=== PATIENT | male | born 1995 | race Caucasian/White ===

== ENCOUNTER 2016-10-30 18:47 | Emergency (ER) | payer BC ==
[~2016-10-30] VITALS: Ht 175.3 cm; Wt 70.0 kg
[2016-10-30 18:54] VITALS: TEMP 36.7; Ht 175.3 cm; Wt 70.0 kg
[2016-10-30] MEDS ORDERED: LORAZEPAM 2 MG/ML 1 ML VIAL IV STA (19:12)
[2016-10-30] MEDS ORDERED: SODIUM CHLORIDE 0.9% 1000ML 1,000 ML IV STA ×2 (19:12→19:59)
[2016-10-30] MEDS ORDERED: ONDANSETRON INJ 2 MG/ML 2 ML VIAL IV STA (19:12)
[2016-10-30] MEDS ORDERED: CNC/54 PO (19:20)
[2016-10-30 19:25] LABS: BASO % 0.3 %; BASO ABS # 0.02 K/uL (0-0.2); COMPLETE YES; EOS % 0.1 %; HEMATOCRIT 49.7 % (42-52); IG% 0.1 %; LYMPH % 23.4 %; LYMPH ABS # 1.81 K/uL (1.2-3.4); MEAN CELL VOLUME 85.4 fL (80-100); MEAN CORPUSCULAR HEMOGLOBIN 30.4 pg (25-34); MEAN CORPUSCULAR HGB CONC 35.6 g/dl (32-36); MEAN PLATELET VOLUME 10.2 fL (7.4-10.4); MONO % 10.3 %; NEUT % 65.8 %; PLATELET COUNT 333 K/uL (130-400); RED BLOOD COUNT 5.82 M/uL (4.7-6.1); WHITE BLOOD COUNT 7.74 K/uL (4.8-10.8)
--- NOTE | 2016-10-30 19:27 | EMERGENCY ROOM VISIT NOTE ---
History Report prepared by Trung: Charu Boyd Under the Supervision of: Dr. Chuck Lopez D.O. First contact with patient: 19:07 Chief Complaint: TACHYCARDIA Stated Complaint: FAST HEART BEAT History of Present Illness The patient is a 20 year old male who presents to the Emergency Room with complaints of persistent fast heart rate starting this morning. He took some Adderall which he is normally not on. He took one 60 mg pill at 0200 and another at 0900 this morning. His heart rate has been elevated all day. He reports nausea and vomiting. He reports that he has not slept because he has been studying for [employer]. He feels anxious. He has not eaten today. He denies any abdominal pain, chest pain or SOB. He admits to marijuana use this morning. He denies taking any other drugs. He admits to alcohol use occasionally, but not in the past week. He denies any tobacco use. He denies any medical problems or surgeries. Source of History: patient Onset: this morning Position: other (heart) Quality: other (fast heart rate) Timing: other (persistent) Associated Symptoms: + nausea, + vomiting, No SOB, No abdominal pain, No chest pain Note: Pt reports feeling anxious. Review of Systems See HPI for pertinent positives & negatives. A total of 10 systems reviewed and were otherwise negative. Past Medical & Surgical Medical Problems: (1) No Known Active Medical Problems Family History No pertinent family history stated. Social History Smoking Status: Current Every Day Smoker Alcohol Use: occasionally Drug Use: marijuana Occupation Status: [employer] student Current/Historical Medications Scheduled Methylphenidate Hcl (Concerta), 54 MG PO DIRECTED Allergies Coded Allergies: No Known Allergies (Unverified , 10/30/16) Physical Exam Vital Signs Date Time Temp Pulse Resp B/P Pulse Ox O2 Delivery O2 Flow Rate FiO2 10/30/16 20:00 89 18 123/70 99 Room Air 10/30/16 19:15 78 10/30/16 18:54 36.7 140 20 137/80 97 Room Air Physical Exam GENERAL: Patient is awake, alert, and very anxious appearing. Patient is diaphoretic and pale. EYES: The conjunctivae are clear. The pupils are round and reactive. EARS, NOSE, MOUTH AND THROAT: The nose is without any evidence of any deformity. Mucous membranes are moist tongue is midline NECK: The neck is nontender and supple. RESPIRATORY: Normal respiratory effort is noted there is no evidence of wheezing rhonchi or rales CARDIOVASCULAR: Tachycardic rate and regular rhythm noted, there are no definite murmurs noted to auscultation. GASTROINTESTINAL: The abdomen is soft. Bowel sounds are present in all quadrants. Abdomen is nontender MUSCULOSKELETAL/EXTREMITIES: There is no evidence of gross deformity full range of motion is noted in the hips and shoulders SKIN: Cool and diaphoretic, no pedal edema noted. NEUROLOGIC: Patient is awake alert and oriented x3 strength is symmetric patellar reflexes are 2+ bilaterally Medical Decision & Procedures ER Provider Diagnostic Interpretation: X-ray results as stated below per interpretation by me and the radiologist. CHEST ONE VIEW PORTABLE CLINICAL HISTORY: Abdominal pain. Tachycardia. COMPARISON STUDY: No previous studies for comparison. FINDINGS: Lung lungs are normal. Lungs are clear. There is no pneumothorax or pleural effusion. Cardiac size is normal. Mediastinal contours are normal. There is no evidence of pulmonary edema. IMPRESSION: No acute cardiopulmonary findings. Electronically signed by: Vlad Segovia M.D. 10/30/2016 7:46 PM Dictated Date/Time: 10/30/2016 7:43 PM Laboratory Results 10/30/16 19:10 Red Blood Count 5.82, Mean Corpuscular Volume 85.4, Mean Corpuscular Hemoglobin 30.4, Mean Corpuscular Hemoglobin Concent 35.6, Mean Platelet Volume 10.2, Neutrophils (%) (Auto) 65.8, Lymphocytes (%) (Auto) 23.4, Monocytes (%) (Auto) 10.3, Eosinophils (%) (Auto) 0.1, Basophils (%) (Auto) 0.3, Neutrophils # (Auto ) 5.09, Lymphocytes # (Auto) 1.81, Monocytes # (Auto) 0.80, Eosinophils # (Auto ) 0.01, Basophils # (Auto) 0.02 10/30/16 19:10 Test 10/30/16 19:10 White Blood Count 7.74 K/uL (4.8-10.8) Red Blood Count 5.82 M/uL (4.7-6.1) Hemoglobin 17.7 g/dL (14.0-18.0) Hematocrit 49.7 % (42-52) Mean Corpuscular Volume 85.4 fL (80-100) Mean Corpuscular Hemoglobin 30.4 pg (25-34) Mean Corpuscular Hemoglobin Concent 35.6 g/dl (32-36) Platelet Count 333 K/uL (130-400) Mean Platelet Volume 10.2 fL (7.4-10.4) Neutrophils (%) (Auto) 65.8 % Lymphocytes (%) (Auto) 23.4 % Monocytes (%) (Auto) 10.3 % Eosinophils (%) (Auto) 0.1 % Basophils (%) (Auto) 0.3 % Neutrophils # (Auto) 5.09 K/uL (1.4-6.5) Lymphocytes # (Auto) 1.81 K/uL (1.2-3.4) Monocytes # (Auto) 0.80 K/uL (0.11-0.59) Eosinophils # (Auto) 0.01 K/uL (0-0.5) Basophils # (Auto) 0.02 K/uL (0-0.2) RDW Standard Deviation 38.4 fL (36.4-46.3) RDW Coefficient of Variation 12.4 % (11.5-14.5) Immature Granulocyte % (Auto) 0.1 % Immature Granulocyte # (Auto) 0.01 K/uL (0.00-0.02) Anion Gap 11.0 mmol/L (3-11) Est Creatinine Clear Calc Drug Dose 117.6 ml/min Estimated GFR () 125.9 Estimated GFR (Non- 108.6 BUN/Creatinine Ratio 11.4 (10-20) Calcium Level 9.9 mg/dl (8.5-10.1) Total Bilirubin 1.2 mg/dl (0.2-1) Direct Bilirubin 0.3 mg/dl (0-0.2) Aspartate Amino Transf (AST/SGOT) 14 U/L (15-37) Alanine Aminotransferase (ALT/SGPT) 24 U/L (12-78) Alkaline Phosphatase 88 U/L (45-117) Total Creatine Kinase 199 U/L (39-308) Creatine Kinase MB 1.4 ng/ml (0.5-3.6) Creatine Kinase MB Ratio 0.7 (0-3.0) Troponin I < 0.015 ng/ml (0-0.045) Total Protein 7.9 gm/dl (6.4-8.2) Albumin 4.8 gm/dl (3.4-5.0) Lipase 70 U/L (73-393) Salicylates Level < 1.7 mg/dl (2.8-20) Acetaminophen Level < 2 ug/ml (10-30) Laboratory results per my review. Medications Administered Medications (Trade) Dose Ordered Sig/Belinda Route Start Time Stop Time Status Last Admin Dose Admin Ondansetron HCl 4 mg 4 mg NOW STAT IV 10/30/16 19:12 10/30/16 19:14 DC 10/30/16 19:26 4 MG Sodium Chloride (Nss 1000ml) 1,000 ml @ 999 mls/hr Q1H1M STAT IV 10/30/16 19:12 10/30/16 20:12 DC 10/30/16 19:26 999 MLS/HR Lorazepam (Ativan Inj) 0.5 mg NOW STAT IV 10/30/16 19:12 10/30/16 19:14 DC 10/30/16 19:26 0.5 MG ECG Indication: palpitations Rate (beats per minute): 119 Rhythm: sinus tachycardia Findings: no ectopy, other (no acute ST segment abnormality) Comparison ECG Date: no prior available Change: Repeat EKG: NSR 80 no ectopy, no acute ST segment abnormalities. ED Course 1908: The patient was evaluated in room B11B. A complete history and physical examination were performed. 1911: Lorazepam 0.5 mg IV, NSS 1000 ml @ 999 mls/hr IV, Zofran Inj 4 mg IV. 1958: NSS 1000 ml @ 999 mls/hr IV. 2002: I discussed the patient's case with the Po[facility] Control [facility]. They recommend observation until symptoms improve. Medical Decision Prior records/ancillary studies reviewed. Triage Nursing notes reviewed. The patient's history was concerning for palpitations. Differential diagnosis: Etiologies such as premature contractions, electrolyte abnormality, cardiac dysrhythmia, thyroid dysfunction, pulmonary embolism, infection, gastrointestinal, as well as others were entertained. The patient is a 20-year-old male who presented to the emergency department for evaluation of palpitations and dizziness. The patient states that he used Adderall that he obtained from a friend to try to study for finals. He states that he thought that the pills were 30 milligrams apiece and he took one at 2 o' clock this morning as well as 9 o'clock this morning. The patient states that he started having palpitations and feelings that he took too much of the medication. The patient denies any suicidal ideation. The patient had significant tachycardia upon arrival to the emergency department but when he was being stuck for IV placement he had a vasovagal episode and appeared to have a sinus bradycardia. He stayed in normal sinus rhythm after this. His initial EKG did not appear like SVT but his blood pressure and his pulse rate in triage make me wonder if he actually was in SVT on arrival to the emergency department. He was treated with IV fluids and IV Ativan. I discussed his case with poison control. At this time I've encouraged him to rest and avoid any strenuous activity. I've encouraged him to avoid any further prescription or recreational drug use. He's also been encouraged to follow-up with his primary care physician or her [facility] tomorrow or return to the emergency department immediately if symptoms change worsen or the need arises. Impression Primary Impression: Adverse drug reaction Additional Impressions: Tachycardia Dizziness Scribe Attestation The scribe's documentation has been prepared under my direction and personally reviewed by me in its entirety. I confirm that the note above accurately reflects all work, treatment, procedures, and medical decision making performed by me. Departure Information Patient Instructions My [facility] Problem Qualifiers Primary Impression: Adverse drug reaction Encounter type: initial encounter Qualified Codes: T88.7XXA - Unspecified adverse effect of drug or medicament, initial encounter
--- NOTE | 2016-10-30 19:47 | DIAGNOSTIC IMAGING REPORT ---
CHEST ONE VIEW PORTABLE CLINICAL HISTORY: Abdominal pain. Tachycardia. COMPARISON STUDY: No previous studies for comparison. FINDINGS: Lung lungs are normal. Lungs are clear. There is no pneumothorax or pleural effusion. Cardiac size is normal. Mediastinal contours are normal. There is no evidence of pulmonary edema. IMPRESSION: No acute cardiopulmonary findings. Electronically signed by: Vlad Segovia M.D. 10/30/2016 7:46 PM Dictated Date/Time: 10/30/2016 7:43 PM
[2016-10-30 19:49] LABS: ALT/SGPT 24 U/L (12-78); AST/SGOT 14 U/L (15-37); BLOOD UREA NITROGEN 11 mg/dl (7-18); BUN/CREATININE RATIO 11.4 (10-20); CALCIUM 9.9 mg/dl (8.5-10.1); CARBON DIOXIDE 26 mmol/L (21-32); CHLORIDE 100 mmol/L (98-107); GLUCOSE 90 mg/dl (70-99); POTASSIUM 3.7 mmol/L (3.5-5.1); SODIUM 137 mmol/L (136-145)
[2016-10-30 19:55] LABS: ALKALINE PHOSPHATASE 88 U/L (45-117); CKMB/CK RATIO 0.7 (0-3.0)
[2016-10-30 20:27] LABS: ACETAMINOPHEN < 2 ug/ml (10-30)
[2016-10-30 20:54] VITALS: BP 126/78; PULSE 93; O2SAT 98
== END 2016-10-30 20:56 | disposition home or self-care (01) ==
LOC: C.EDB 18:49
DX: R00.0 Tachycardia, unspecified (principal); R42 Dizziness and giddiness; T43.625A Adverse effect of amphetamines, initial encounter; R11.2 Nausea with vomiting, unspecified; F17.200 Nicotine dependence, unspecified, uncomplicated